=== PATIENT | female | born 1980 ===

== ENCOUNTER 2020-12-14 10:53 | Emergency (ER) | payer SELFPAY ==
--- NOTE | 2020-12-14 14:31 | Emergency Department Report ---
<EDDIE CRUMP - Last Filed: 12/14/20 19:46> ED General Adult HPI - General Chief complaint: Fall Stated complaint: FALL, NECK PAIN, BACK PAIN Time Seen by Provider: 12/14/20 14:05 - Related Data Previous Rx's Medication Instructions Recorded Last Taken Type Ibuprofen [Motrin] 600 mg PO Q8H PRN #30 tablet 12/14/20 Unknown Rx Allergies Allergy/AdvReac Type Severity Reaction Status Date / Time No Known Allergies Allergy Unverified 12/14/20 11:49 ED Past Medical Hx - Medications Home Medications: Home Medications Medication Instructions Recorded Confirmed Last Taken Type Ibuprofen [Motrin] 600 mg PO Q8H PRN #30 tablet 12/14/20 Unknown Rx ED Medical Decision Making - Lab Data Result diagrams: 12/14/20 14:42 12/14/20 14:42 - Radiology Data Radiology results: report reviewed, [place] [address] Cat Scan Report Signed Patient: TRISH KOCH MR#: [id number] : 1980 Acct:[id number] Age/Sex: 40 / F ADM Date: 12/14/20 Loc: ED Attending Dr: Ordering Physician: JAIRO HARRISON Date of Service: 12/14/20 Procedure(s): CT cervical spine wo con Accession Number(s): [id number] cc: JAIRO HARRISON CT cervical spine wo con INDICATION / CLINICAL INFORMATION: 40 years Female; midline cervical spine tenderness s/p fall. TECHNIQUE: Axial CT images of the cervical spine were obtained. Sagittal and coronal reformatted images were produced. All CT scans at this location are performed using CT dose reduction for ALARA by means of automated exposure control. COMPARISON: None available. FINDINGS: POST-SURGICAL CHANGES: None. ALIGNMENT: There is no significant spondylolisthesis of the cervical spine. VERTEBRAE: There is no CT evidence of acute fracture of the cervical spine. INTRAVERTEBRAL DISCS: The facet and uncovertebral joint hypertrophy at C3-4 result in mild to moderate neural from narrowing bilaterally at. There is mild right foraminal narrowing at C4-5. The right-sided disc bulge appears to efface the ventral subarachnoid space at this level. There is mild right foraminal narrowing at C5-6. There is no CT evidence of significant spinal stenosis at C6-7. There is mild spondylosis at C7-T1 which appears to efface the ventral subara chnoid space. PARASPINAL SOFT TISSUES: No prevertebral soft tissue fluid collections are identified. ADDITIONAL FINDINGS: There is incidental note of developmental bilateral C7 cervical ribs. IMPRESSION: 1. There is no CT evidence of acute fracture involving cervical spine. Signer Name: Sj Presley MD Signed: 12/14/2020 5:48 PM Workstation Name: [id number] Transcribed By: MR Dictated By: Sj Prseley MD Electronically Authenticated By: Sj Presley MD Signed Date/Time: 12/14/201747 DD/ 43 TD/TT: [facility] [address] [place] [address] Cat Scan Report Signed Patient: TRISH KOCH MR#: [id number] : 1980 Acct:[id number] Age/Sex: 40 / F ADM Date: 12/14/20 Loc: ED Attending Dr: Ordering Physician: JAIRO HARRISON Date of Service: 12/14/20 Procedure(s): CT abdomen pelvis w con Accession Number(s): [id number] cc: AJIRO HARRISON CT ABDOMEN AND PELVIS WITH CONTRAST INDICATION: lower abd pain/vaginal bleeding/back pain-fall CONTRAST: 100 cc Omnipaque 300 IV COMPARISON: None available. All CT scans at this location are performed using CT dose reduction for ALARA by means of automated exposure control. FINDINGS: No fractures are identified. Lung bases are clear. No pne umoperitoneum is seen. No retroperitoneal hematoma is noted. Aorta appears intact. No pelvic hematoma is seen. Small cysts are seen in the liver. No evidence of abdominal organ injury is seen with viscera appear intact. No other abdominal masses are seen. No lymphadenopathy is noted. No inflammatory changes are seen. No evidence of mesenteric hemorrhage is seen. No free fluid is seen. Small left ovarian cysts probably are physiologic. Appendix appears within normal limits. No evidence of bowel obstruction is seen. No bowel lesions are obvious. Probable small uterine leiomyoma is seen on the right. Urinary bladder appears intact. IMPRESSION: No acute abnormalities are seen Signer Name: Pino Marcelino MD Signed: 12/14/2020 6:03 PM Workstation Name: [id number] Transcribed By: GUIDO Dictated By: Pino Marcelino MD Electronically Authenticated By: Pino Marcelino MD Signed Date/Time: 12/14/201802 DD/ 57 TD/TT: - Medical Decision Making I seen care of the patient from Pricilla Everardo CROSS at shift change at 1700 hrs. patient presented to the ED for evaluation following an accidental fall at home. All lab test results were reviewed and are all nonactionable. C-spine CT scan without contrast showed no acute cervical disc or spine fractures and subluxations. The abdomen pelvis CT scan with contrast showed no acute abnormalities. Patient was treated for pain in the ED and on reevaluation, patient's pain is well controlled medications. Patient was discharged home on pain medications and advised to follow-up with her primary care physician in 5 to 7 days for reevaluation. Patient was otherwise advised return to the ED immediately if symptoms get worse. - Differential Diagnosis Cervical sprain; muscle spasm; back injury; abdomen contusion ED Disposition Clinical Impression: Cervical paraspinal muscle spasm, Spasm of muscle of lower back Abdominal wall contusion Qualifiers: Encounter type: initial encounter Qualified Code(s): S30.1XXA - Contusion of abdominal wall, initial encounter Disposition: - TO HOME OR SELFCARE Is pt being admited?: No Does the pt Need Aspirin: No Condition: Good Instructions: Muscle Cramps and Spasms, [id number], Back Injury Prevention, [id number], Contusion, [id number] Additional Instructions: Todos los resultados de las pruebas de laboratorio fueron revisados ??y no son factibles. Todos los informes de imgenes, incluida la tomografa computarizada de la columna C sin contraste y la tomografa computarizada de la pelvis del abd omen con contraste intravenoso, no mostraron anomalas agudas. Por lo tanto, tome los medicamentos con alimentos, paola muchos lquidos y jakob un seguimiento con christianson mdico de atencin primaria en 5 a 7 dobbs para nancy reevaluacin. Regrese al servicio de urgencias de inmediato si los sntomas empeoran. Prescriptions: Ibuprofen [Motrin] 600 mg PO Q8H PRN #30 tablet PRN Reason: Pain Referrals: [facility] [Provider Group] - 3-5 Days Time of Disposition: 19:50 Print Language: EQUATORIAL GUINEAN <PRICILLA SUE - Last Filed: 12/15/20 10:24> ED General Adult HPI - General Source: patient, EMS Mode of arrival: Wheelchair Limitations: Physical Limitation - History of Present Illness Initial comments: 40-year-old female patient presents to the emergency department with complaints of neck pain, back pain, lower abdominal pain, and vaginal bleeding status post fall. Patient states that she accidentally fell approximately 4 feet off of a truck while she was at work today, landing on her back. There was no resulting loss of consciousness. Patient is able to recall the events surrounding the f all in entirety. She has no prior history of neck or back problems. Her last menstrual cycle was 2 weeks ago. She is not anticoagulated. She has been able to bear weight since the fall but ambulation has been painful. Denies syncope, seizure, paresthesias, numbness, weakness, nausea, vomiting, vision changes, bladder/bowel incontinence, urinary retention, saddle anesthesia. Denies other complaints at this time. Severity scale (0 -10): 10 ED Review of Systems Other: CARDIOVASCULAR: Negative for chest pain. PULMONARY: Negative for dyspnea. GASTROINTESTINAL: Negative for abdominal pain. MUSCULOSKELETAL: Positive for back pain and neck pain. NEUROLOGICAL: Positive for headache. INTEGUMENTARY: Negative for ecchymosis. ED Past Medical Hx - Past Medical History Previous Medical History?: Yes Hx Asthma: Yes - Surgical History Past Surgical History?: No ED Physical Exam - General Limitations: Physical Limitation - Other Other exam information: Airway: Patent and intact. Trachea is midline. Breathing: Clear to auscultation bilaterally. No respiratory distress. Circulation: Regular rate and rhythm, no murmurs, no pulse deficit, normal peripheral perfusion. Deficit (Neuro): Awake, alert, appropriately interactive. GCS 15. Strength and sensation intact. Follows commands. No focal deficits. HEENT: Normocephalic, atraumatic. EOMI. PERRL. No hemotympanum. Nares patent. No intraoral lesions. No malocclusion. Facial bones are stable. No ecchymosis suggestive of basilar skull fracture. Neck: There is bilateral paraspinal and midline posterior midline cervical tenderness. No step-offs. Chest Wall: Equal chest rise. Chest wall is non-tender, no deformity, no crepitus. Abdominal: Soft, nondistended. Diffuse lower abdominal tenderness without guarding, rigidity, or rebound. No discoloration. No organomegaly. Skin: No abrasions, lacerations, or ecchymosis. Back: There is midline lumbar tenderness. No step-offs. No saddle anesthesia. No evidence of bladder/bowel incontinence. Extremities: Non-tender. Moves all four extremities spontaneously. Full range of motion intact. No apparent deformity. Neurovascular and motor/sensory function intact. ED Medical Decision Making - Lab Data Result diagrams: 12/14/20 14:42 12/14/20 14:42 - Medical Decision Making Differential diagnosis including but not limited to: sprain, strain, fracture, contusion, dislocation, disc herniation, cauda equina syndrome, intra-abdominal injury Care of patient transferred to Eddie Crump PA-C at shift change pending imaging results. <SJ VILLAGRAN - Last Filed: 12/16/20 17:27> ED Review of Systems ROS: Stated complaint: FALL, NECK PAIN, BACK PAIN Other details as noted in HPI ED Course Vital Signs 12/14/20 12/14/20 12/14/20 11:54 17:42 18:12 Temperature 98.1 F Pulse Rate 81 Respiratory 20 18 18 Rate Blood Pressure 173/115 [Right] O2 Sat by Pulse 100 Oximetry 12/14/20 12/14/20 20:14 20:19 Temperature Pulse Rate 69 Respiratory 18 18 Rate Blood Pressure 181/112 [Right] O2 Sat by Pulse Oximetry ED Medical Decision Making - Lab Data Result diagrams: 12/14/20 14:42 12/14/20 14:42 Critical care attestation.: If time is entered above; I have spent that time in minutes in the direct care of this critically ill patient, excluding procedure time. ED Disposition Is pt being admited?: No Does the pt Need Aspirin: No
[2020-12-14 15:12] LABS: Blood Urea Nitrogen 10 mg/dL (7-17); Calcium 8.9 mg/dL (8.4-10.2); Hemolysis Index 2
[2020-12-14 15:25] LABS: Basophils % (Auto) 0.7 % (0.0-1.8); Eosinophils # (Auto) 0.1 K/mm3 (0.0-0.4); Eosinophils % (Auto) 1.3 % (0.0-4.3); Hematocrit 31.4 % (30.3-42.9); Hemoglobin 9.5 gm/dl (10.1-14.3); Lymphocytes # (Auto) 1.7 K/mm3 (1.2-5.4); Lymphocytes % (Auto) 27.5 % (13.4-35.0); Mean Corpuscular HGB Conc 30 % (30-34); Monocytes # (Auto) 0.6 K/mm3 (0.0-0.8); Monocytes % (Auto) 9.8 % (0.0-7.3); Platelet Count 337 K/mm3 (140-440); Red Blood Count 4.76 M/mm3 (3.65-5.03)
[2020-12-14 15:26] LABS: Mean Corpuscular Volume 66 fl (79-97)
[2020-12-14 15:37] LABS: BUN/Creatinine Ratio 20
[2020-12-14] MEDS ORDERED: MORPHINE 4 MG/1 ML INJ IV ONE (16:56)
[2020-12-14] MEDS ORDERED: ONDANSETRON 4 MG/2 ML INJ IV ONE (16:56)
--- NOTE | 2020-12-14 17:53 | Cat Scan Report ---
CT cervical spine wo con INDICATION / CLINICAL INFORMATION: 40 years Female; midline cervical spine tenderness s/p fall. TECHNIQUE: Axial CT images of the cervical spine were obtained. Sagittal and coronal reformatted images were pr oduced. All CT scans at this location are performed using CT dose reduction for ALARA by means of aut omated exposure control. COMPARISON: None available. FINDINGS: POST-SURGICAL CHANGES: None. ALIGNMENT: There is no significant spondylolisthesis of the cervical spine. VERTEBRAE: There is no CT evidence of acute fracture of the cervical spine. INTRAVERTEBRAL DISCS: The facet and uncovertebral joint hypertrophy at C3-4 result in mild to moderat e neural from narrowing bilaterally at. There is mild right foraminal narrowing at C4-5. The right-si ded disc bulge appears to efface the ventral subarachnoid space at this level. There is mild right foraminal narrowing at C5-6. There is no CT evidence of significant spinal stenos is at C6-7. There is mild spondylosis at C7-T1 which appears to efface the ventral subarachnoid space . PARASPINAL SOFT TISSUES: No prevertebral soft tissue fluid collections are identified. ADDITIONAL FINDINGS: There is incidental note of developmental bilateral C7 cervical ribs. IMPRESSION: 1. There is no CT evidence of acute fracture involving cervical spine. Signer Name: Sj Presley MD Signed: 12/14/2020 5:48 PM Workstation Name: [id number]
--- NOTE | 2020-12-14 18:07 | Cat Scan Report ---
CT ABDOMEN AND PELVIS WITH CONTRAST INDICATION: lower abd pain/vaginal bleeding/back pain-fall CONTRAST: 100 cc Omnipaque 300 IV COMPARISON: None available. All CT scans at this location are performed using CT dose reduction for ALARA by means of automated e xposure control. FINDINGS: No fractures are identified. Lung bases are clear. No pneumoperitoneum is seen. No retroper itoneal hematoma is noted. Aorta appears intact. No pelvic hematoma is seen. Small cysts are seen in the liver. No evidence of abdominal organ injury is seen with viscera appear intact. No other abdomin al masses are seen. No lymphadenopathy is noted. No inflammatory changes are seen. No evidence of mes enteric hemorrhage is seen. No free fluid is seen. Small left ovarian cysts probably are physiologic. Appendix appears within normal limits. No evidence of bowel obstruction is seen. No bowel lesions ar e obvious. Probable small uterine leiomyoma is seen on the right. Urinary bladder appears intact. IMPRESSION: No acute abnormalities are seen Signer Name: Pino Marcelino MD Signed: 12/14/2020 6:03 PM Workstation Name: [id number]
[2020-12-14] MEDS ORDERED: KETOROLAC 30 MG/1 ML INJ IV ONE (20:05)
[2020-12-14] MEDS ORDERED: CYCLOBENZAPRINE 10 MG TAB PO ONE (20:05)
[2020-12-14 20:24] VITALS: BP 181/112
== END 2020-12-14 20:26 | disposition home or self-care (01) ==
LOC: ED 10:53
DX: S30.1XXA Contusion of abdominal wall, initial encounter (principal); M62.838 Other muscle spasm; M54.2 Cervicalgia; M62.830 Muscle spasm of back; M54.5 Low back pain; Z79.899 Other long term (current) drug therapy; W18.39XA Other fall on same level, initial encounter; Y93.89 Activity, other specified; Y92.89 Other specified places as the place of occurrence of the external cause; Y99.8 Other external cause status
CPT/HCPCS: 36415; 72125; 74177; 80048; 84703; 85025; 96374; 96375; 99284; J1885; J2270; J2405; Q9967